=== PATIENT | female | born 1955 | race American Indian/Alaskan Native ===

== ENCOUNTER 2018-07-04 10:32 | Emergency (ER) | payer BC ==
[2018-07-04 10:44] VITALS: BMI 28.3
--- NOTE | 2018-07-04 11:08 | ED PDOC ---
Arrival/HPI - General Chief Complaint: Palpitations Time Seen by Provider: 07/04/18 10:44 Historian: Patient - History of Present Illness Narrative History of Present Illness (Text): 07/04/18 11:03 Patient is a 63yo F with PMH HTN presenting to ED with palpitations and chest pressure for 3 weeks. She reports feeling palpitations due to her blood pressure medication that are intermittent throughout the day and typically resolve with deep breathing. She also reports chest pressure intermittently that she feels when waking up in the morning and after eating. She reports low blood pressure after taking her BP meds, claiming when she visited her PMD last week her systolic was 100. She reports high BP at times which she attributes to her chronic neck pain. She reports chronic numbness and tingling down her arms b/l. She denies fevers, chills, nausea, vomiting, sweating, chest pain, acid reflux, abdominal pain, diarrhea, dysuria, falls, trauma, weakness, facial drooping, slurring of speech, or difficulty swallowing. Time/Duration: < month Symptom Course: Intermittent Quality: Tightness Past Medical History - Infectious Disease Hx of Infectious Diseases: None - Cardiac Hx Hypertension: Yes - Pulmonary Hx Respiratory Disorders: No - Neurological Hx Neurological Disorder: No - HEENT Hx HEENT Disorder: No - Renal Hx Renal Disorder: No - Endocrine/Metabolic Hx Endocrine Disorders: No - Hematological/Oncological Hx Blood Disorders: No - Integumentary Hx Dermatological Disorder: No - Musculoskeletal/Rheumatological Hx Herniated Disk: Yes - Gastrointestinal Hx Gastrointestinal Disorders: No - Genitourinary/Gynecological Hx Genitourinary Disorders: No - Psychiatric Hx Psychophysiologic Disorder: No Hx Substance Use: No - Surgical History Other/Comment: ganglion cyst on left hand - Anesthesia Hx Anesthesia: Yes Family/Social History Family/Social History: Hypertension, CAD/MS Smoking Status: Former Smoker Hx Alcohol Use: No Hx Substance Use: No Allergies/Home Meds Allergies/Adverse Reactions: Allergies ampicillin Allergy (Verified 07/04/18 10:45) DIZZINESS passed out shellfish derived Allergy (Verified 07/04/18 10:45) DIZZINESS Passed out Home Medications: Home Meds Medication Instructions Recorded Confirmed Antionette 5-20 mg Tablet 1 tab PO DAILY 02/20/17 02/27/17 Aspirin [Aspirin Chewable] 324 mg PO Q6 PRN 02/27/17 02/27/17 Cholecalciferol [Vitamin D 1000 IU] 1,000 unit PO QWK 02/27/17 02/27/17 Review of Systems - Review of Systems Constitutional: Normal Eyes: Normal ENT: Normal Respiratory: Normal Cardiovascular: Palpitations. absent: Chest Pain, Syncope Gastrointestinal: Normal Genitourinary Female: Normal Musculoskeletal: Back Pain, Neck Pain Skin: Normal Neurological: Normal Endocrine: Normal Hemo/Lymphatic: Normal Psychiatric: Normal Physical Exam Vital Signs Reviewed: Yes Vital Signs Temp Pulse Resp BP Pulse Ox 07/04/18 10:46 97.8 F 87 16 160/91 H 100 Temperature: Afebrile Blood Pressure: Hypertensive Pulse: Regular Respiratory Rate: Normal Appearance: Positive for: Well-Appearing, Non-Toxic, Comfortable Pain Distress: None Mental Status: Positive for: Alert and Oriented X 3 - Systems Exam Head: Present: Atraumatic, Normocephalic Pupils: Present: PERRL Extroacular Muscles: Present: EOMI Conjunctiva: Present: Normal Mouth: Present: Moist Mucous Membranes Neck: Present: Normal Range of Motion, Paraspinal Tenderness Respiratory/Chest: Present: Clear to Auscultation, Good Air Exchange. No: Respiratory Distress, Accessory Muscle Use Cardiovascular: Present: Regular Rate and Rhythm, Normal S1, S2. No: Murmurs Abdomen: Present: Normal Bowel Sounds. No: Tenderness, Distention, Peritoneal Signs Upper Extremity: Present: Normal Inspection, Normal ROM, Norm 2-Pt Discrimination. No: Cyanosis, Edema, Swelling, Erythema Lower Extremity: Present: Normal Inspection. No: Edema Neurological: Present: GCS=15, CN II-XII Intact, Speech Normal, Motor Func Grossly Intact, Normal Sensory Function Skin: Present: Warm, Normal Color. No: Dry, Rashes Psychiatric: Present: Alert, Oriented x 3, Normal Insight, Normal Concentration Medical Decision Making ED Course and Treatment: 07/04/18 11:11 CP r/o ACS Heart Score of 3, correlating with 0.9-1.7% risk of adverse cardiac event. - EKG - troponins - CBC, CMP, BNP - UA - CXR - reassess 07/04/18 12:26 - EKG: NSR - troponin neg. - CBC, CMP within normal limits Had lengthy conversation with patient regarding nature and management of symptoms. Instructed patient to keep appointment with Dr. Cedillo, cardiology on July 22 for stress test. Advised patient to follow up with PMD this week for evaluation of BP medications. Patient understood instructions and agreed. - RAD Interpretation Radiology Orders: 07/04/18 10:52 CHEST PORTABLE [RAD] Stat Disposition/Present on Arrival - Present on Arrival Any Indicators Present on Arrival: No History of DVT/PE: No History of Uncontrolled Diabetes: No Urinary Catheter: No History of Decub. Ulcer: No History Surgical Site Infection Following: None - Disposition Have Diagnosis and Disposition been Completed?: Yes Diagnosis: Palpitations, Hypertension Disposition: HOME/ ROUTINE Disposition Time: 12:30 Condition: IMPROVED Discharge Instructions (ExitCare): Palpitations (DC), High Blood Pressure (DC) Additional Instructions: Please follow up with Dr. Sanders within 2 days. Please follow up with your cardiology appointment with Dr. Cedillo. Take your medications as prescribed. If symptoms worsen, return to the emergency department. Referrals: Quoc Boucher MD [Primary Care Provider] - Follow up with primary Steven Morrison MD [Medical Doctor] - Follow up with primary Forms: [employer] ([place])
[2018-07-04 11:43] LABS: BASO # 0.02 K/mm3 (0.0-2.0); BASO % 0.2 % (0.0-3.0); EOS # 0.2 (0.0-0.7); EOS % 2.2 % (1.5-5.0); HEMOGLOBIN 12.5 g/dL (12.0-16.0); LYMPH # 2.2 (1.2-3.4); LYMPH % 26.7 % (22.0-35.0); MEAN CORPUSCULAR HEMOGLOBIN 30.9 pg (25.0-35.0); MEAN CORPUSCULAR HGB CONC 31.8 g/dl (31.0-37.0); MEAN PLATELET VOLUME 7.7 fl (7.0-11.0); MONO # 0.3 (0.1-0.6); RBC 4.05 10^6/uL (3.5-6.1); RED CELL DISTRIBUTION WIDTH 12.6 % (11.5-14.5); WHITE BLOOD COUNT 8.3 10^3/uL (4.5-11.0)
[2018-07-04 11:51] LABS: INR 1.05; PROTHROMBIN TIME 11.9 SECONDS (9.4-12.5)
[2018-07-04 11:52] LABS: ALB/GLOB RATIO 1.3 (1.1-1.8); ALBUMIN 4.1 g/dL (3.0-4.8); ALT/SGPT 18 U/L (7-56); AST/SGOT 26 U/L (14-36); BLOOD UREA NITROGEN 10 mg/dL (7-21); CALCIUM 9.5 mg/dL (8.4-10.5); GFR NON-AFRICAN AMERICAN > 60
[2018-07-04 12:02] LABS: B-TYPE NATRIURETIC PEPTIDE 83.5 pg/mL (0-450); TROPONIN I < 0.01 ng/mL
[2018-07-04 12:37] VITALS: BP 131/83; PULSE 81; RESP 17; TEMP 98.4; O2SAT 98
--- NOTE | 2018-07-04 12:43 | RAD ---
HISTORY: chest pain COMPARISON: None available. TECHNIQUE: Chest, one view. FINDINGS: Examination limited by habitus. LUNGS: Mild biapical pleural thickening. No focal consolidation. Please note that chest x-ray has limited sensitivity for the detection of pulmonary masses. PLEURA: No significant pleural effusion identified. No definite pneumothorax . CARDIOVASCULAR: The cardiomediastinal silhouette appears within normal limits of size. Atherosclerotic calcifications present. OSSEOUS STRUCTURES: No acute osseous abnormality identified. VISUALIZED UPPER ABDOMEN: Unremarkable. OTHER FINDINGS: None. IMPRESSION: No focal consolidation.
--- NOTE | 2018-07-04 14:36 | CARD ---
APPROVED REPORT Date of service: 07/04/2018 EKG Measurement Heart [id number] <Conclusion> Sinus rhythm with premature supraventricular complexes
== END 2018-07-04 12:44 | disposition home or self-care (01) ==
LOC: ED 10:32
DX: I10 Essential (primary) hypertension (principal); R00.2 Palpitations; Z87.891 Personal history of nicotine dependence